=== PATIENT | male | born 1945 | race Caucasian/White ===

== ENCOUNTER 2017-09-28 17:18 | Emergency (ER) | payer OTHER, MEDICARE, BC ==
[~2017-09-28 17:18] MED LIST: ISOVUE-370 76%-LOCM 1 ML ONE
[2017-09-28 17:53] LABS: #Basophils 0.1 thou/uL (0.0-0.2); #Eosinphils 0.1 thou/uL (0.0-0.7); #Lymphocytes 2.8 thou/uL (1.20-3.40); #Monocytes 0.8 thou/uL (0.11-0.59); #Neutrophils 6.9 thou/uL (1.40-6.50); %Basophils 0.6 % (0.0-1.0); %Eosinophils 1.3 % (0.0-10.0); %Lymphocytes 26.3 % (21.0-51.0); %Monocytes 7.5 % (0.0-10.0); %Neutrophils 64.3 % (42.0-75.0); Hemoglobin 15.7 g/dL (14.0-18.0); Mean Corpuscular HGB CONC 33.2 g/dL (32.0-36.0); Mean Corpuscular Hemoglobin 28.5 pg (27.0-31.0); Mean Corpuscular Volume 85.8 fl (80.0-94.0); Mean Platelet Volume 9.3 fL (7.4-10.4); Platelet Count 136 thou/uL (130-400); Red Blood Cell (RBC) Count 5.52 mill/uL (4.70-6.10); White Blood Cell (WBC) Count 10.8 thou/uL (4.8-10.8)
[2017-09-28 17:58] LABS: INR-International Normal Ratio 1.1; Prothrombin Time 14.1 SEC (12.0-14.7)
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
[2017-09-28 18:11] LABS: ALT (SGPT) 33 U/L (8-55); AST (SGOT) 39 U/L (5-34); Albumin 4.4 g/dL (3.4-4.8); Alcohol Less than 10 mg/dL (Less than 10); Alkaline Phosphatase 62 U/L (40-150); Anion Gap 16 mmol/L (10-20); BUN (Urea Nitrogen) 30 mg/dL (8.4-25.7); Bilirubin, Total 1.1 mg/dL (0.2-1.2); Calc. Creatinine Clearance 0 mL/min (70-130); Carbon Dioxide 22 mmol/L (23-31); Chloride 105 mmol/L (98-107); Estimated GFR-MDRD 42; Glucose 137 mg/dL (83-110); Lipase 48 U/L (8-78); Potassium 4.1 mmol/L (3.5-5.1); Protein, Total 7.4 g/dL (5.8-8.1); Sodium 139 mmol/L (136-145)
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
[2017-09-28] MEDS ORDERED: Acetaminophen/Codeine 30-300mg Tablet ONE (20:22)
--- NOTE | 2017-11-15 14:24 | EKG ---
Test Reason : Blood Pressure : / mmHG Vent. Rate : 076 BPM Atrial Rate : 076 BPM P-R Int : 102 ms QRS Dur : 088 ms QT Int : 378 ms P-R-T Axes : 010 030 049 degrees QTc Int : 425 ms Sinus rhythm with short [place] Nonspecific T wave abnormality Abnormal ECG Confirmed by ANNIE MILES, BORIS ([id number]), legal editor OLYA JOSUE ([id number] on 11/15/2017 2:23:39 PM Referred By: Confirmed By:BORIS VALENCIA MD
== END 2017-09-28 20:26 | disposition home or self-care (01) ==
LOC: ERS 17:18
DX: S06.9X1A Unspecified intracranial injury with loss of consciousness of 30 minutes or less, initial encounter (principal); S80.01XA Contusion of right knee, initial encounter; I10 Essential (primary) hypertension; G47.30 Sleep apnea, unspecified; V49.9XXA Car occupant (driver) (passenger) injured in unspecified traffic accident, initial encounter
CPT/HCPCS: 70450; 71045; 71260; 72125; 74177; 80053; 80307; 83690; 85025; 85610; 86850; 86900; 86901; 93005; 96360; G0390